=== PATIENT | female | born 1990 | race Caucasian/White ===

== ENCOUNTER 2023-08-20 11:34 | Emergency (ER) | payer OTHER, SELFPAY ==
[2023-08-20 11:43] VITALS: BP 145/94; PULSE 113; RESP 16; TEMP 35.5; O2SAT 99
--- NOTE | 2023-08-20 11:51 | ED.WOUNDLAC ---
HPI - Wound/Laceration General Chief Complaint: Wound/Laceration Stated Complaint: Injury Right Ankle/Puncture Wound History of Present Illness HPI narrative: Patient presents with a screw patch from a rooster spur to her right ankle. Patient states that occurred yesterday now the area is painful swollen and tender to touch. No drainage no streaking.patient is up to date on TDAP Related Data Allergies Allergy/AdvReac Type Severity Reaction Status Date / Time No Known Allergies Allergy Unverified 09/26/16 17:26 Review of Systems Review of Systems: CONSTITUTIONAL: Denies fever, chills, or sweats. EYES: Denies visual changes, redness, or discharge. ENT: Denies rhinorrhea, congestion, sore throat, or otalgia. CARDIOVASCULAR: Denies chest pain, palpitations, or edema. RESPIRATORY: Denies cough or dyspnea. GASTROINTESTINAL: Denies abdominal pain, nausea, vomiting, or diarrhea. GENITOURINARY: Denies dysuria or hematuria. SKIN: Denies rash or itching. MUSCULOSKELETAL: Denies back pain, joint pain, or myalgia. NEUROLOGIC: Denies headache, numbness, or weakness. PSYCHIATRIC: Denies anxiety or depression. Exam Narrative: At time of signature, agree with nursing past medical, surgical, social and family history. There is no relevant family history pertinent to the presenting complaint Const: Other: GENERAL: Well-appearing, well-nourished, and in no acute distress. HEAD: Normocephalic, atraumatic. EYES: PERRLA and EOMI. ENT: Nares clear, no rhinorrhea or epistaxis. Mucous membranes moist. NECK: Supple. CHEST: Clear to auscultation. No respiratory distress. HEART: Regular rate and rhythm. No murmur heard. Normal peripheral pulses. ABDOMEN: Soft, nontender, nondistended, normal active bowel sounds. EXTREMITIES: Normal range of motion. No edema. Right ankle 2 cm area of redness with area in the middle no drainage no streaking tender and some concern for cellulitis SKIN: Warm, dry, no rash. NEURO: No focal deficits. Alert and oriented x3. [place] Coma Scale Eye Opening: Spontaneous 4 [place] Coma Scale Motor: Obeys Commands 6 [place] Coma Scale Verbal: Oriented 5 [place] Coma Scale Total 15 Course Course Level of Care: Express Care Visit Vital Signs Vital signs: Vital Signs Temperature 35.5 C L 08/20/23 11:43 Pulse Rate 113 H 08/20/23 11:43 Respiratory Rate 16 08/20/23 11:43 Blood Pressure 145/94 H 08/20/23 11:43 Pulse Oximetry 99 08/20/23 11:43 Oxygen Delivery Room Air 08/20/23 11:43 Temperature 35.5 C L 08/20/23 11:43 Pulse Rate 113 H 08/20/23 11:43 Respiratory Rate 16 08/20/23 11:43 Blood Pressure 145/94 H 08/20/23 11:43 Pulse Oximetry 99 08/20/23 11:43 Oxygen Delivery Room Air 08/20/23 11:43 Please JERILYN schedule a followup visit with your personal physician for further evaluation and treatment. Including recheck and discussion of your blood pressure. If your symptoms persist, change or worsen significantly before you can contact your personal physician then please, without delay, go to the emergency department for further evaluation Discussed with patient to discontinue taking Sudafed for upper respiratory symptoms and to get Coricidin [id number] for symptoms. Discharge Plan Discharge Clinical Impression: Cellulitis Patient Disposition: Home, Self-Care Condition: Stable Instructions: Antibiotic Form Additional Instructions: elevate extremity monitor for any drainage or streaking warm Epsom salt compresses or soaks to area follow up with PCP in 3-4 days Prescriptions: New amoxicillin-pot clavulanate 875-125 mg tablet 1 tablet PO Q12H 7 Days Qty: 14 0RF Follow-up/Referrals: PHYSICIAN,EARLY INTERVENTIONIST [Primary Care Provider] -
== END 2023-08-20 11:57 | disposition home or self-care (01) ==
PROVIDERS: Emergency Provider Nurse Practitioner Family
DX: L03.115 Cellulitis of right lower limb (principal); W61.32XA Struck by chicken, initial encounter
CPT/HCPCS: 99203; G0463